=== PATIENT | female | born 1975 | race Caucasian/White ===

== ENCOUNTER → 2016-09-20 | Outpatient (CLI) | payer BC ==
[~2016-09-20] MED LIST: CELEXA20 MG PO; KEFLEX 500MG.500 MG PO; PAROXETINE HCL20 MG NG
--- NOTE | 2016-09-20 14:55 | RADIOLOGY REPORT PS360 ---
[facility] ([facility]) HISTORY: Right upper quadrant pain and nausea, biliary sludge on ultrasound ABD PAIN ORDERING PHYSICIAN: Ivan Salvador MD PATIENT AGE: 40 years COMPARISON: Ultrasound 09/13/2016 DOSE: 8.12 mCi technetium Choletec and 1.5 mcg of CCK FINDINGS: Homogeneous activity is present within the hepatic parenchyma. Activity is present in the gallbladder by 10. Activity is present in the small bowel during the CCK infusion. The gallbladder ejection fraction is calculated to be 61%, within normal limits The patient did report abdominal pain during CCK infusion. IMPRESSION: 1. No evidence of common or cystic duct obstruction. 2. Normal gallbladder ejection fraction
== END ==
LOC: RAD 10:21
DX: R10.11 Right upper quadrant pain (principal)
CPT/HCPCS: A9537; J2805

== ENCOUNTER → 2017-02-03 | Outpatient (CLI) | payer BC ==
--- NOTE | 2017-02-04 06:50 | RADIOLOGY REPORT PS360 ---
CT ABD PELVIS W/ CONTRAST CLINICAL INDICATION: RUQ PAIN,NAUSEA ORDERING PHYSICIAN: Ivan Salvador MD PATIENT AGE: 41 years COMPARISON: None TECHNIQUE: Axial images obtained with sagittal and coronal reformats. PROCEDURE: Oral Contrast: Redicat IV Contrast: 75 mL Isovue-[id number]. FINDINGS: Lower thorax: No acute finding ABDOMEN: Liver: No masses or biliary dilatation. Gallbladder: Nondistended. No radio opaque stones. Pancreas: No masses or peripancreatic fluid collections. Spleen: Unremarkable. Adrenals: Unremarkable Kidneys/ureters: No masses. No renal calculi. No hydronephrosis. No perinephric fluid collections. No ureteral dilatation or obvious ureteral calculi. Stomach bowel: There is a mild amount retained colonic feces. Appendix: No evidence of appendicitis. PELVIS: Reproductive: An oval area of slight decreased attenuation with peripheral enhancement is present in the mid aspect of the uterus slightly toward the left measuring approximately 12 mm. Etiology is indeterminate. Would recommend a test to ensure this does not represent a gestational sac. There is is a 12 mm cyst within the left ovary. Patient has had tubal ligation however, it appears at the left clip is no longer in place and is anterior to the descending colon. There are prominent para uterine veins on the left Bladder: Nondistended. No obvious stones or masses. ABDOMEN & PELVIS: Peritoneum: No abnormal fluid collections. No obvious inflammatory changes. No free air. Lymph nodes: No enlarged lymph nodes apparent. Vasculature: No evidence of abdominal aortic aneurysm. No retroperitoneal hemorrhage evident. Bones: No acute fracture IMPRESSION: 1. No acute intra-abdominal or pelvic findings. 2. Hypodensity within the central aspect of the uterus slightly toward the left etiology indeterminate. Recommend test to ensure this does not represent a gestational sac. There are tubal ligation clips present. It appears that the left clip is no longer in place and is anterior to the descending colon.
== END ==
LOC: RAD 01-25 10:30
DX: R10.11 Right upper quadrant pain (principal); R11.0 Nausea

== ENCOUNTER → 2017-02-09 | Outpatient (CLI) | payer BC ==
--- NOTE | 2017-02-10 12:25 | RADIOLOGY REPORT PS360 ---
US PELVIS-TRANSVAGINAL ONLY COMPARISON: CT scan abdomen pelvis 02/03/2017 HISTORY: Possible abnormality seen in uterus on recent CT scan, patient has bilateral tubal ligation and had previous uterine ablation 10 years ago TECHNIQUE: Transvaginal ultrasound FINDINGS: The uterus is normal in size with fairly homogeneous echogenicity noted. The endometrial echo appears normal. There is no gestational sac seen within the uterus. There is a small slightly hyperechoic nodular lesion abutting the endometrium measuring 0.8 x 0.8 cm. This likely corresponds to the hypodense lesion seen on the CT scan and may represent scarring from the previous uterine ablation procedure. The ovaries are normal in size, there is a small cyst left ovary measuring 1.3 x 1.3 x 1.3 cm. The right ovary appears normal. There is no cul-de-sac fluid. IMPRESSION: Findings as described above most compatible with interval post ablation scarring involving the endometrium along with a small left ovarian cyst.
== END ==
LOC: RAD 14:43
DX: R11.0 Nausea (principal); R93.8 Abnormal findings on diagnostic imaging of other specified body structures; R10.2 Pelvic and perineal pain

== ENCOUNTER 2017-04-18 06:03 | Day surgery (SDC) | payer BC ==
[~2017-04-18] VITALS: Ht 162.6 cm; Wt 75.8 kg
[2017-04-18 06:42] LABS: HEMOGLOBIN 14.1 g/dL (12.2-16.2); LYMPH # 2.3 K/mm3 (0.7-4.5); LYMPH % 47.6 % (10-50.0)
[2017-04-18 07:04] LABS: BUN 17 mg/dL (7-18)
[2017-04-18 07:05] LABS: GFR (ESTIMATED) 93 ML/MIN (59-)
--- NOTE | 2017-04-18 08:43 | Operative Note ---
Procedure/Operative Record Procedure Date of procedure: 04/18/17 Pre-Op Dx: Chronic LEFT lower quadrant pain Post-Op Dx: Chronic LEFT lower quadrant pain, LEFT ovarian vein varicosities, RIGHT sided pelvic peritoneal adhesions. Procedure performed: Bilateral salpingectomy, LEFT oophorectomy Surgeon: Dr. Federico Porter Behavioral Therapy Coordinator(s): None Anesthesia: Julio Walsh EBL (ml): 50 Clinical note: She is a 41-year-old 2 para 2 lady who complains of LEFT lower quadrant pain. She says that it's achy all the time and really doesn't go away. She's had a previous tubal ligation with Filshie clips and at the time of it was noted that one of the Filshie clips was from the LEFT tube. After having discussed the risk and benefits we elected to perform a laparoscopy with possible resection of endometriosis, possible lysis of adhesions and bilateral salpingectomy. Operative findings: She had mild hydro-salpinx of both proximal tubes. The tubes were completely . The Filshie clip was still on the RIGHT side but the left-hand Filshie clip was missing. The RIGHT ovary appeared completely normal. The LEFT ovary was normal but the infundibulopelvic ligament was a thick varicosity. It had a sausagelike appearance. When I placed her in lithotomy position the varicosities 1 away. I suspect that her achiness may be related to this thick varicosities on the LEFT side. The RIGHT distal cecum was also adherent to the anterior abdominal wall. She has not had a previous appendectomy. She did not complain of any pain on the RIGHT side so these were left alone. The upper abdomen appeared normal. The rest of the pelvis appeared completely normal. There was no evidence of endometriosis. The bladder flap appeared normal. Operative note: She was taken to the operating room where general anesthesia was found be adequate. She was prepped and draped in normal sterile fashion in the semi- lithotomy position. A weighted speculum was placed in the vagina and the anterior lip of the cervix was grasped with a tenaculum. An acorn retractor was then placed within the cervical os. I changed gloves and injected 10 mL of 0.5 percent ropivacaine around the umbilicus. I made a small incision within the umbilicus and then inserted a Veress needle into the abdominal cavity. The abdominal cavity was then insufflated with carbon dioxide gas to a pressure of 20 mmHg. I then inserted a 5 mm trocar under direct vision. I injected through and through the pubic hairline, made a small incision here and inserted an 8 mm trocar under direct vision. I then identified the inferior epigastric arteries on the LEFT side, went lateral to these and injected through and through. I made a small incision and inserted a 5 mm trocar here under direct vision. I then elected to remove both of her fallopian tubes. I initially cut across the LEFT proximal end of the tube. I then grasped the distal end of the tube and using Harmonic scalpel along the meso salpinx I removed the LEFT tube. This was similarly performed on the patient's RIGHT side. Initially on the RIGHT side I removed the Filshie clip with Harmonic scalpel. The tubes and Filshie clip were then removed through the 8 mm trocar site. I then further inspected the pelvis and elected to take down the attachment of the sigmoid colon to the LEFT pelvic sidewall. This was performed with Harmonic scalpel. I then took the patient out of Trendelenburg position and once again the veins on the LEFT side completely filled up and were sausagelike. As result of this I elected to perform a LEFT oophorectomy. Consents were obtained from her family. The LEFT round ligament was then opened with Harmonic scalpel. I then cut across the LEFT utero-ovarian ligament with Harmonic scalpel. The ovary was then freed up along its infundibulopelvic ligament. 2 Endoloops were then applied to the infundibulopelvic ligament and the ovary was cut away. I then removed the 8 mm trocar, made the incision slightly bigger and inserted an 11 mm trocar under direct vision. I placed an Endo Catch bag through this 11 mm trocar and then placed the ovary in the bag and removed through the 11 mm trocar site. We then rinsed the pelvis well and once again hemostasis was assured. I placed a large piece of Interceed over the area where I taken down the sigmoid colon and another piece of Interceed over the infundibulopelvic ligament. We then injected 30 mL of 0.5 percent ropivacaine into the pelvis. Once again hemostasis was assured. The gas was let out of the abdomen as I checked for hemostasis. The secondary trochars were removed under direct vision. The sites were hemostatic. The camera and primary trocar removed together. The 11 mm trocar site was closed deeply with 2-0 Vicryl suture by grasping the fascia and closing this with 2-0 Vicryl suture. The subcutaneous tissues were then closed with a single interrupted 2-0 Vicryl suture. The skin was closed with running subcuticular 4-0 Monocryl suture. The 5 mm trocar sites were closed with subcuticular 4-0 Monocryl suture. Sterile dressings were applied. The patient tolerated the procedure well and was taken to the recovery room in excellent condition. All sponge instrument and needle counts were correct. Estimate a blood loss was less than 50 mL. Conplications: None Specimens: Bilateral fallopian tubes, LEFT ovary at 0827
--- NOTE | 2017-04-18 08:44 | Anesthesia Record ---
Anesthesia Record Part I Total IV fluids: 1800 EBL (ml): 50 Urine Output: 25 B/P: 116/52 % SaO2: 96 Pulse: 84 Resps: 16 Temp: 97.9 Patient is: Drowsy, Stable Stable to PACU at: 0840 at 0844
--- NOTE | 2017-04-18 08:45 | Anesthesia Record ---
Anesthesia Record Part II Discharge time: 909 Destination: Same day surgery PACU nurse assessment review? Yes Patient is: Stable Anesthesia complications? No at 0844
[2017-04-18 14:04] VITALS: BP 131/75
== END 2017-04-18 10:00 | disposition home or self-care (01) ==
LOC: SDC 06:03
PROVIDERS: Nurse Practitioner Obstetrics & Gynecology
PROC: 0UT74ZZ Resection of Bilateral Fallopian Tubes, Percutaneous Endoscopic Approach (ICD-10-PCS; 2017-04-18)
PROC: 0UT14ZZ Resection of Left Ovary, Percutaneous Endoscopic Approach (ICD-10-PCS; principal; 2017-04-18 07:30)
DX: R10.32 Left lower quadrant pain (principal); I86.2 Pelvic varices; N73.6 Female pelvic peritoneal adhesions (postinfective)
CPT/HCPCS: J0131; J2405; J2710